=== PATIENT | female | born 1990 | race Caucasian/White ===

== ENCOUNTER 2018-07-28 11:45 | Emergency (ER) | payer OTHER ==
[2018-07-28 12:40] LABS: KETONE, URINE AUTO RFX NEGATIVE (NEGATIVE); LEUKOCYTE ESTERASE UR AUTO RFX NEGATIVE (NEGATIVE); NITRITE, URINE AUTO RFX NEGATIVE (NEGATIVE); RBC, URINE AUTO RFX TNTC /HPF (0-3); SPECIFIC GRAVITY UR AUTO RFX 1.017 (1.002-1.035); SQUAM EPITHELIAL CELL UR AURFX 1 /HPF (0-6); WBC, URINE AUTO RFX 7 /HPF (0-3); YEAST LIKE CELL URINE AUTO RFX SMALL
[2018-07-28 15:03] LABS: CONTROL LINE UCG INT CTR LINE PRESENT; URINE PREG TEST NEGATIVE (NEGATIVE)
[2018-07-28 15:19] LABS: BASO # 0.1 10^3/uL (0.0-0.2); BASO % 0.8 % (0.0-1.0); EOS # 0.1 10^3/uL (0.0-0.50); EOS % 1.3 % (0.0-3.0); IMMATURE GRANULOCYTE % 0.2 % (0-3.0); LYMPH # 2.8 10^3/uL (1.5-6.5); LYMPH % 32.7 % (24.0-44.0); MEAN CORPUSCULAR VOLUME 91.5 fl (80.0-96.0); MONO # 0.6 10^3/uL (0.0-0.8); MONO % 6.7 % (0.0-5.0); NEUTROPHILS % 58.3 % (36.0-66.0); PLATELET COUNT, AUTOMATED 358 10^3/uL (150-450); RED BLOOD COUNT 4.37 10^6/uL (4.00-5.40); RED CELL DISTRIBUTION WIDTH 11.6 % (11.5-14.5); WHITE BLOOD COUNT 8.5 10^3/uL (4.0-10.0)
[2018-07-28] MEDS: KETOROLAC 30 MG/ML VIAL (J1885) IV (15:43)
[2018-07-28] MEDS: ONDANSETRON 4MG/2ML VIAL (J2405) IV (15:43)
[2018-07-28 16:19] LABS: ALBUMIN 4.1 GM/DL (3.2-5.2); ALBUMIN/GLOBULIN RATIO 0.98 (1.00-1.93); ALKALINE PHOSPHATASE 81 U/L (45-117); ALT/SGPT 28 U/L (12-78); AMYLASE 55 U/L (25-115); ANION GAP 8 MEQ/L (8-16); AST/SGOT 22 U/L (7-37); BILIRUBIN,DIRECT < 0.1 MG/DL (0.0-0.2); BILIRUBIN,TOTAL 0.4 MG/DL (0.2-1.0); BLOOD UREA NITROGEN 12 MG/DL (7-18); CALCIUM LEVEL 8.8 MG/DL (8.5-10.1); CARBON DIOXIDE LEVEL 26 MEQ/L (21-32); CHLORIDE LEVEL 106 MEQ/L (98-107); CREATININE FOR GFR 0.79 MG/DL (0.55-1.30); GLOMERULAR FILTRATION RATE > 60.0 (>60); GLUCOSE, FASTING 101 MG/DL (70-100); LIPASE 94 U/L (73-393); POTASSIUM SERUM 3.5 MEQ/L (3.5-5.1); SODIUM LEVEL 140 MEQ/L (136-145); TOTAL PROTEIN 8.3 GM/DL (6.4-8.2)
[2018-07-28] MEDS: BACTRIM 160MG/800MG DS TAB PO (17:16)
[2018-07-28] MEDS: FLUCONAZOLE 100 MG TAB PO (17:17)
== END 2018-07-28 17:23 | disposition home or self-care (01) ==
LOC: M ED 11:45
DX: N83.202 Unspecified ovarian cyst, left side (principal); N30.90 Cystitis, unspecified without hematuria; R11.0 Nausea; Z87.442 Personal history of urinary calculi; Z87.891 Personal history of nicotine dependence
CPT/HCPCS: J2405

== ENCOUNTER → 2018-10-26 | Outpatient (CLI) | payer OTHER ==
[~2018-10-26] MED LIST: BACT800T5 PO; DIFL200T PO
[2018-10-26 15:22] LABS: FREE T4 0.93 NG/DL (0.76-1.46); THYROID STIMULATING HORMONE 1.76 uIU/ML (0.358-3.740)
[2018-10-26 15:25] LABS: PROLACTIN 5.8 NG/ML
[2018-10-26 15:26] LABS: ESTRADIOL 37.7 PG/ML; FOLLICLE STIMULATING HORMONE 5.8 mIU/mL; LUTEINIZING HORMONE 4.2 mIU/mL
[2018-10-31 00:15] LABS: 17 HYDROXY PROGESTERONE 47 ng/dL (.); DEHYDROEPIANDROSTERONE SULFATE 302.2 ug/dL (84.8-378.0); TESTOSTERONE FREE (DIRECT) 2.6 pg/mL (0.0-4.2)
== END ==
LOC: M SMT 10:17
PROVIDERS: ATTEND Obstetrics & Gynecology
DX: E28.2 Polycystic ovarian syndrome (principal)

== ENCOUNTER → 2018-11-13 | Outpatient (CLI) | payer OTHER | LOC: M WUC 13:52 | PROVIDERS: ATTEND Obstetrics & Gynecology | DX: E28.2 Polycystic ovarian syndrome (principal) ==

== ENCOUNTER → 2019-02-05 | Outpatient (CLI) | payer OTHER | LOC: M WUC 14:21 | PROVIDERS: ATTEND Obstetrics & Gynecology | DX: E28.2 Polycystic ovarian syndrome (principal) ==

== ENCOUNTER 2019-07-03 19:13 | Outpatient (CLI) | payer OTHER ==
[~2019-07-03] VITALS: Ht 157.5 cm; Wt 83.8 kg
[2019-07-03 19:36] VITALS: BP 132/75
[2019-07-03] MEDS ORDERED: PRENTAB9 PO (20:23)
== END 2019-07-03 20:15 | disposition home or self-care (01) ==
LOC: M LDO 19:13
PROVIDERS: ATTEND Obstetrics & Gynecology
DX: O36.8120 Decreased fetal movements, second trimester, not applicable or unspecified (principal); O26.892 Other specified pregnancy related conditions, second trimester; R10.9 Unspecified abdominal pain; R06.02 Shortness of breath; Z3A.24 24 weeks gestation of pregnancy
CPT/HCPCS: 59025; G0378; G0463

== ENCOUNTER 2019-09-28 14:25 | Inpatient (IN) | payer OTHER ==
[~2019-09-28] VITALS: Ht 157.5 cm; Wt 88.3 kg
[2019-09-28] VITALS (9 sets, daily range): BP systolic 108–144; BP diastolic 58–95
[~2019-09-28 14:25] MED LIST changes: +PRENTAB9 PO
[2019-09-28] MEDS ORDERED: LACTATED RINGER'S 1000 ML IV STA (15:27)
[2019-09-28] MEDS ORDERED: PENICILLIN G POTASSIUM IV 5 MU in D5W MINI-BAG PLUS 100 ML IV STA (15:27)
[2019-09-28] MEDS ORDERED: LR 1,000 ML IV SCH (15:27)
[2019-09-28] MEDS ORDERED: NALBUPHINE HCL 10 MG/ML AMP (J2300) IM ONE ×2 (15:45→20:15)
[2019-09-28] MEDS ORDERED: NALBUPHINE HCL 10 MG/ML AMP (J2300) IV ONE ×2 (15:45→20:15)
[2019-09-28] MEDS ORDERED: PROMETHAZINE INJ 25 MG/ML VIAL (J2550) IV ONE ×2 (15:45→20:15)
[2019-09-28 15:53] LABS: BASO % 0.3 % (0.0-1.0); EOS # 0.1 10^3/uL (0.0-0.5); EOS % 0.4 % (0.0-3.0); HEMATOCRIT 35.9 % (36.0-47.0); HEMOGLOBIN 12.1 g/dl (12.0-15.5); LYMPH # 1.5 10^3/uL (1.5-5.0); LYMPH % 12.7 % (24.0-44.0); MEAN CORPUSCULAR HGB CONC 33.7 g/dl (32.0-36.5); MEAN CORPUSCULAR VOLUME 92.1 fl (80.0-96.0); MONO # 0.6 10^3/uL (0.0-0.8); MONO % 5.2 % (0.0-5.0); NEUTROPHILS # 9.5 10^3/uL (1.5-8.5); NEUTROPHILS % 80.8 % (36.0-66.0); PLATELET COUNT, AUTOMATED 297 10^3/uL (150-450); WHITE BLOOD COUNT 11.8 10^3/uL (4.0-10.0)
--- NOTE | 2019-09-28 16:01 | HPEPDOC ---
Obstetrical History & Physical General Date of Admission Sep 28, 2019 at 15:33 History of Present Illness patient is a 29 yo G1 @ 36+4wks gestation presents with concern for rupture of m radhika at 0100 this AM. She started having regular contraction after that. report having bloody show. +FM. patient recently diagnosed with GHTN and was collecting 24hr urine protein which she turned in this AM at lab. She reports seeing blood in urine she collected. denies STOVER/N/V/change in vision. 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 she has not been using medication for a long time. Surgical History: Denies/None Social History Marital Status: Family situation: Spouse/partner home * Smoker: non-smoker Alcohol: Denies Drugs: denies Imunizations Tdap status: current Influenza Status: current Allergies Coded Allergies: No Known Allergies (Unverified , 09/28/19) Medications Scheduled No.137/Iron/Folic Acd ( Vitamin Tablet) 1 Each Tablet, 1 TAB PO DAILY Physical Examination Physical Examination GENERAL: Alert and oriented times three. BREAST: . ABDOMEN: Gravid and non-tender to touch. FETUS: Is vertex (VTX) by sterile vaginal examination (SVE), fetus is vertex (VTX) by Sai. HEART RATE: Regular rate and rhythm. LUNGS: Clear to auscultation (CTA). EXTREMITIES: No edema/erythema/tenderness speculum exam: small pooling, neg valsalva ferning positive ce: 2/80/-3, posterior, medium EFW: 3600gm Vital Signs/I&O Vital Signs Date Time Temp Pulse Resp B/P (MAP) Pulse Ox O2 Delivery O2 Flow Rate FiO2 09/28/19 14:45 97.9 107 16 144/95 (111) Laboratory Data 24H LABS Laboratory Tests 2 09/28/19 15:32: 09/28/19 15:39: CBC/BMP Pertinent Laboratoy Data Blood Type: O+ RBC Antibody Screen: Negative HIV: Positive Hepatitis B: Positive Rapid Plasma Reagin: Nonreactive Rubella: Immune Chlamydia/Gonorrhea: Negative Group B Streptococcus: Unknown Glucose Tolerance Test: 128 Anatomy Ultrasound Placenta Location: Anterior Normal Anatomy: Yes Placenta Previa: No Vaginal Examination Dilation: 2cm Effacement: 80% Station: -3 Cervical Consistency: Medium Cervical Position: Posterior Presentation: Cephalic presentation Assessment Heart Rate (FHR): 150 Variability: Moderate Accelerations: Positive Decelerations: None Tocometer Contractions: Yes Frequency: irregular Assessment/Plan Assessment patient is a 29 yo G1 @ 36+4wks with PPROM. complicated by GHTN. Discussed antibiotics prophy with PNC for GBS unknown with baby. Possible augmentation with pitocin as needed. Patient counseled on l&d monitors and risks as follows. Discussed external monitor with toco and sono for fhr. Internal monitors with IUPC and FSE as indicated. Possible use of oxytocin and AROM to augment labor as indicated. Risk of emergent delivery, infection requiring antibiotics and prolonged hospital stay, bleeding requiring blood transfusion and associated risk like anaphylatic reaction and transmission of blood borne pathogens, use of forceps and vacuum to assist vaginal delivery in an emergency or for maternal exhaustion and associated risk of vaginal tear and permanent injuries, episiotomy and pain discussed with patient. Plan Admit and orient. Swimming Pool Maintenance and consent. Diet: regular Group B Streptococcus (GBS) unknown, start PCN prophy Labs and intravenous (IV) per unit protocol. Counseled on Pitocin and induction of labor (IOL). Anticipate normal spontaneous delivery (). C-S as appropriate. AYALA HOWARD DO Sep 28, 2019 15:57
[2019-09-28 16:11] LABS: ALT/SGPT 17 U/L (12-78); BILIRUBIN,TOTAL 0.3 MG/DL (0.2-1.0); GLOMERULAR FILTRATION RATE > 60.0 (>60); LDH LACTATE DEHYDROGENASE 118 U/L (84-246); URIC ACID 7.5 MG/DL (2.6-6.0)
[2019-09-28 16:21] LABS: CREATININE,RANDOM URINE 64.1 MG/DL; TOTAL PROTEIN,RANDOM URINE 25.9 MG/DL (0.0-12.0)
[2019-09-28] MEDS: PENICILLIN G POTASSIUM IV 2.5 MU in IV 1 EA IV SCH ×2 (19:46→23:46)
[2019-09-28] MEDS ORDERED: OXYTOCIN DRIP 30 UNITS in IV 1 EA IV SCH (20:15)
[2019-09-28] MEDS ORDERED: FENTANYL 2MCG/ML ROPIVACAINE 0.2% IN 0.9% NACL 100ML IVBAG As Ordered ONE (23:29)
[2019-09-29] VITALS (49 sets, daily range): BP systolic 106–163; BP diastolic 59–108
[2019-09-29] MEDS ORDERED: EPIDURAL COMMENT XX SCH (02:00)
[2019-09-29] MEDS ORDERED: ePHEDrine SULFATE 25 MG/5 ML(5MG/ML) SYRINGE IV PRN (02:00)
[2019-09-29] MEDS ORDERED: diphenhydrAMINE INJ 50MG/ML VIAL (J1200) IV PRN ×2 (02:00→17:20)
[2019-09-29] MEDS ORDERED: EPIDURAL/PCA KEYS XX PRN (02:00)
[2019-09-29] MEDS ORDERED: NALOXONE INJ 0.4 MG/1 ML VIAL (J2310) IV PRN ×3 (02:00→17:20)
[2019-09-29] MEDS ORDERED: LACTATED RINGER'S 1000 ML IV PRN (02:00)
[2019-09-29] MEDS ORDERED: ONDANSETRON 4MG/2ML VIAL (J2405) IV PRN ×4 (02:00→19:15)
[2019-09-29] MEDS ORDERED: REFRIGERATOR IV KEYS XX PRN (02:00)
[2019-09-29] MEDS: PENICILLIN G POTASSIUM IV 2.5 MU in IV 1 EA IV SCH ×3 (04:04→13:56)
--- NOTE | 2019-09-29 05:18 | IPNPDOC ---
Text Note Date of Service The patient was seen on 09/29/19. NOTE patient comfortable with epidural. pit was decreased from 10mU to 5mU due to recurrent variable/late decels vitals: normal fht:150/min-mod norm/no accel/variable decels toco: ctx q 3-5mins CE: 4/80/-1, IUPC placed for amnioinfusion. a/p patient in latent labor, start amnioinfusion for recurrent variable decels. recheck in 4 -6hrs. VS,Fishbone, I+O VS, Fishbone, I+O Laboratory Tests 09/28/19 15:32 Vital Signs Date Time Temp Pulse Resp B/P (MAP) Pulse Ox O2 Delivery O2 Flow Rate FiO2 09/29/19 04:00 97.3 112 134/80 (98) 09/28/19 14:45 16 I&O- Last 24 Hours up to 6 AM 09/29/19 06:00 Intake Total 1600 ml Output Total 1650 ml Balance -50 ml AYALA HOWARD DO Sep 29, 2019 05:18
[2019-09-29] MEDS: FENTANYL/ROPIVACAINE/NACL BAG 100 ML EPIDURAL SCH ×3 (07:40→20:58)
--- NOTE | 2019-09-29 09:15 | IPNPDOC ---
Text Note Date of Service The patient was seen on 09/29/19. NOTE Intrapartum Note, acceptance of care I accepted care of Consueol at 0730 this morning. In brief, she is a 29yo with SIUP at 36w5d who presented to L&D with PPROM, having likely had ROM at 0100 on 09/28, clear. She is now >24hr with ROM. Receiving PCN for GBS unknown. Pitocin was initiated for augmentation, but was discontinued overnight for FHR decels. Last SCE at [address] Laguna was 4/80/-2, IUPC was placed and amnio-infusion was begun. Pit titrated back up to 4mu. Oskar gracia is comfortable with epidural. I recently discontinued amnio-infusion since there was minimal return and FHR decels had resolved. PNC significant for recent GHTN diagnosis and protein:creatinine by straight cath on admission was 0.4, ruling in for pre-E withOUT severe features. BPs remain normotensive to mild range. Notably, UA had 2+ blood, likely influencing the protein in her urine. She has no other sx of pre-E. Currently FHRT shows bl 150, + accels, mod norm, no decels [place]: ctx q3-4min SCE just now 4/50/-2. Cervix somewhat swollen. head moved slightly with good return of still-clear fluid. -Plan to continue to titrate pitocin to adequte MVUs and recheck in 4-6hr or meli ner as indicated Safe to proceed Dr. Rosalia Moses MD VS,Elvia I+O VSElvia I+O Laboratory Tests 09/28/19 15:32 Vital Signs Date Time Temp Pulse Resp B/P (MAP) Pulse Ox O2 Delivery O2 Flow Rate FiO2 09/29/19 07:00 97.7 110 144/93 (110) 09/28/19 14:45 16 I&O- Last 24 Hours up to 6 AM 09/29/19 06:00 Intake Total 1600 ml Output Total 1650 ml Balance -50 ml Rosalia Moses MD Sep 29, 2019 09:15
--- NOTE | 2019-09-29 12:42 | IPNPDOC ---
Text Note Date of Service The patient was seen on 09/29/19. NOTE Intrapartum Note Consuelo is a 29yo with SIUP at 36w5d admitted to L&D for PPROM, having likely had ROM at 0100 on . She has dx of pre-E withOUT severe features by mild range bp's and proteinuria. She is now >24hr with ROM. Receiving PCN for GBS unknown. Pitocin was initiated for augmentation, but was discontinued overnight for FHR decels. Re-started when FHRT was reassuring and titrated to adequate MVUs by IUPC. Patient remains comfortable with epidural. Vitals: BPs normotensive to mild range. FHRT: bl 150, + accels, mod norm, no decels [place]: ctx q2-3min with adequate MVUs by IUPC which I recently replaced SCE /-2 Plan: -continue to titrate pitocin to adequte MVUs -recheck in 2-4hr or sooner as indicated -safe to proceed Dr. Rosalia Moses MD VS,Elvia, I+O VSElvia I+O Laboratory Tests 09/28/19 15:32 Vital Signs Date Time Temp Pulse Resp B/P (MAP) Pulse Ox O2 Delivery O2 Flow Rate FiO2 09/29/19 07:00 97.7 110 144/93 (110) 09/28/19 14:45 16 I&O- Last 24 Hours up to 6 AM 09/29/19 06:00 Intake Total 1600 ml Output Total 1650 ml Balance -50 ml Rosalia Moses MD Sep 29, 2019 12:42
[2019-09-29] MEDS ORDERED: BICITRA 30ML SOLN UDC As Ordered ONE (16:38)
[2019-09-29] MEDS ORDERED: AZITHROMYCIN INJ 500MG VIAL (J0456) As Ordered ONE (16:39)
[2019-09-29] MEDS ORDERED: ceFAZolin 2 GM/D5W 50 ML IV BAG (J0690 PER 500MG) As Ordered ONE (16:39)
[2019-09-29] MEDS ORDERED: BICITRA 30ML SOLN UDC PO ONE (16:45)
[2019-09-29] MEDS ORDERED: ceFAZolin SOD 2 GM in IV 1 EA IV ONE (16:45)
[2019-09-29] MEDS ORDERED: AZITHROMYCIN INJ 500 MG, VIAL MATE ADAPTER 1 EACH in D5W 250 ML IV ONE (16:45)
[2019-09-29] MEDS ORDERED: OXYTOCIN INJ 10 UNITS/ML VIAL (J2590) As Ordered ONE (16:53)
[2019-09-29] MEDS ORDERED: ONDANSETRON 4MG/2ML VIAL (J2405) As Ordered ONE (16:58)
[2019-09-29] MEDS ORDERED: dexameTHASONE 4 MG/ML 1ML VIAL (J1100) As Ordered ONE (16:58)
[2019-09-29] MEDS ORDERED: MORPHINE PRES-FREE INJ 10 MG/10 ML VIAL (J2274) As Ordered ONE (17:17)
[2019-09-29] MEDS ORDERED: NALBUPHINE HCL 10 MG/ML AMP (J2300) IV PRN ×2 (17:20→19:15)
[2019-09-29] MEDS ORDERED: METOCLOPRAMIDE INJ 10MG/2ML VIAL (J2765) IV PRN (17:20)
[2019-09-29] MEDS ORDERED: LIDOCAINE 2% W/EPIN INJ 20ML **PRES FREE As Ordered ONE (17:43)
[2019-09-29] MEDS ORDERED: KETOROLAC 60 MG/2 ML VIAL (J1885) As Ordered ONE (17:53)
[2019-09-29] MEDS ORDERED: PENICILLIN G POTASSIUM IV 2.5 MU in IV 1 EA IV SCH (18:00)
[2019-09-29] MEDS ORDERED: RHOGAM 300 MCG (1500 IU) INJ (J2790) IM SCH (19:00)
[2019-09-29] MEDS ORDERED: MEASLES,MUMPS,RUBELLA VACCINE INJ (MMR-II) (90707) SC SCH (19:00)
--- NOTE | 2019-09-29 19:03 | IPNPDOC ---
Text Note Date of Service The patient was seen on 09/29/19. NOTE Late entry due to busy L&D I checked Consuelo 4 hours after prior check, having had adequate MVUs and she had made no cervical change- cervix was also noticeably more swollen. Thus, I counseled her regarding my recommendation for PLTCS for arrest of dilation which she was amenable to. Patient was counseled regarding all risks/benefits/alternatives and consent form for PLTCS and blood transfusion were signed by patient and me. Anceph 2g IV given as well as 500mg IV azithromycin PLTCS was uncomplicated. Please see dictated operative report for further details. Dr. Rosalia Moses MD VS,Elvia, I+O VS, Elvia, I+O Vital Signs Date Time Temp Pulse Resp B/P (MAP) Pulse Ox O2 Delivery O2 Flow Rate FiO2 09/29/19 16:31 99.2 09/29/19 16:30 77 20 129/63 (85) I&O- Last 24 Hours up to 6 AM 09/29/19 06:00 Intake Total 1600 ml Output Total 1650 ml Balance -50 ml Rosalia Moses MD Sep 29, 2019 19:03
[2019-09-29] MEDS ORDERED: LR 1,000 ML IV SCH (19:15)
[2019-09-29] MEDS ORDERED: fentaNYL 100 MCG/2 ML INJECTION (J3010) IV PRN (19:15)
[2019-09-29] MEDS: LR 1,000 ML IV SCH (21:02)
[2019-09-29] MEDS: DOCUSATE SODIUM 100 MG CAP PO SCH (21:02)
[2019-09-30] MEDS: KETOROLAC 30 MG/ML VIAL (J1885) IV SCH ×3 (00:55→12:37)
[2019-09-30 02:07] VITALS: BP 109/68
[2019-09-30] MEDS: LR 1,000 ML IV SCH (03:30)
[2019-09-30 06:26] VITALS: BP 104/65
[2019-09-30 07:31] LABS: HEMATOCRIT 24.4 % (36.0-47.0); MEAN CORPUSCULAR HEMOGLOBIN 31.3 pg (27.0-33.0); MEAN CORPUSCULAR HGB CONC 33.6 g/dl (32.0-36.5); MEAN CORPUSCULAR VOLUME 93.1 fl (80.0-96.0); PLATELET COUNT, AUTOMATED 212 10^3/uL (150-450); RED BLOOD COUNT 2.62 10^6/uL (4.00-5.40); WHITE BLOOD COUNT 17.8 10^3/uL (4.0-10.0)
[2019-09-30 07:38] LABS: HEMOGLOBIN 8.2 g/dl (12.0-15.5)
[2019-09-30] MEDS: PRENATAL VITAMINS CHEWABLE TABLET PO SCH (08:40)
[2019-09-30] MEDS: DOCUSATE SODIUM 100 MG CAP PO SCH ×2 (08:40→21:00)
[2019-09-30] MEDS: PERCOCET 5MG/325MG TAB PO PRN ×2 (08:41→17:39)
--- NOTE | 2019-09-30 09:18 | IPNPDOC ---
Progress Note Date of Service: Sep 30, 2019 Day#: 1 Progress Note POD 1 SUBJECT: Consuelo is a 29yo s/p uncomplicated PLTCS on 09/29 for arrest of dilation at 36w5d after presenting with PPROM and having augmentation of labor, doing well post-op/ day # 1. She had >24hr ROM and received PCN during her labor course for GBS unknown. She has ambulated without issue, mercado in place draining clear yellow urine, has tolerated clear liquids so far and going to try a regular breakfast. Breast feeding without issue. Reports lochia is like a period. She denies f/c/n/v/SOB/CP. OBJECTIVE: VITAL SIGNS: Within normal limits, afebrile. Alert and oriented times three. Abdomen: Fundus firm at U-2. Soft, appropriately tender to palpation. Pfannensteil incision covered by dry sterile dressing with no strike-through. Pre-op H/H: 12.1/35.9 Post-op H/H: 8.2/24.4 ASSESSMENT: Consuelo is a 29yo s/p uncomplicated PLTCS on 09/29 for arrest of dilation at 36w5d after presenting with PPROM and having augmentation of labor, doing well post-op/ day # 1. Vitals within normal limits, afebrile, hemodynamically stable with no evidence of infection. PLAN: 1. Routine post-op/post- care 2. Percocet and Motrin for pain. 3. Encourage breast feeding and ambulation and use of IS. SCDs until fully ambulatory. 4. Regular diet 5. Mercado to be removed 24hr post-op with 4 hour due to void Dr. Rosalia Moses MD VS, I&O, 24H, Elvia Vital Signs/I&O Vital Signs Date Time Temp Pulse Resp B/P (MAP) Pulse Ox O2 Delivery O2 Flow Rate FiO2 09/30/19 08:41 18 09/30/19 06:26 96.9 75 104/65 (78) 96 Room Air I&O- Last 24 Hours up to 6 AM 09/30/19 06:00 Intake Total 7650.9 ml Output Total 2350 ml Balance 5300.9 ml Laboratory Data 24H LABS Laboratory Tests 2 09/30/19 07:16: Nucleated Red Blood Cells % (auto) 0.0 CBC/BMP Laboratory Tests 09/30/19 07:16 Rosalia Moses MD Sep 30, 2019 09:18
[2019-09-30 10:00] VITALS: BP 118/67
[2019-09-30 14:00] VITALS: BP 118/73
[2019-09-30 18:00] VITALS: BP 109/64
[2019-09-30] MEDS: IBUPROFEN 800 MG TAB PO SCH (21:00)
[2019-09-30 22:00] VITALS: BP 122/73
[2019-10-01 02:00] VITALS: BP 111/59
[2019-10-01] MEDS: IBUPROFEN 800 MG TAB PO SCH ×3 (05:20→22:42)
[2019-10-01 06:00] VITALS: BP 118/71
--- NOTE | 2019-10-01 08:51 | IPNPDOC ---
Progress Note Date of Service: Oct 01, 2019 Progress Note Consuelo is a 29 yo G1 now P1 who is POD#2 s/p uncomplicated PLTCS late at night on 29Sep2019 for arrest of dilation after being admitted for PROM. No acute events over last 24 hours. Ms. Salgado feels well this morning. She is tolerating a regular diet and denies any nausea or vomiting. She is ambulating, voiding, and has minimal lochia. Her pain is well controlled with her current pain regimen. Vitals - VSS, normotenisive, afebrile, non tachycardic General - AAOX3, sitting up in bed, pleasant and conversant, NAD Abdomen - Soft, non distended. Incision clean/dry/intact. Steri strips in place. No tenderness to palpation. Fundus firm at U-2. Extremities - No edema UO - appropriate Labs: H/H stable both pre and post op. Ms. Salgado is doing well and is making an appropriate / postoperative recovery. Plan to continue routine post op / care. Anticipate discharge home tomorrow. All patient questions answered. Sharan Rogers DO VS, I&O, 24H, Fishbone Vital Signs/I&O Vital Signs Date Time Temp Pulse Resp B/P (MAP) Pulse Ox O2 Delivery O2 Flow Rate FiO2 10/01/19 06:00 96.9 69 18 118/71 (87) 96 Room Air I&O- Last 24 Hours up to 6 AM 10/01/19 06:00 Intake Total 480 ml Output Total 700 ml Balance -220 ml SHARAN ROGERS DO Oct 01, 2019 08:51
[2019-10-01] MEDS: PERCOCET 5MG/325MG TAB PO PRN ×2 (10:22→20:21)
[2019-10-01] MEDS: PRENATAL VITAMINS CHEWABLE TABLET PO SCH (10:22)
[2019-10-01] MEDS: DOCUSATE SODIUM 100 MG CAP PO SCH ×2 (10:22→20:20)
[2019-10-01 18:00] VITALS: BP 121/75
[2019-10-02] MEDS: IBUPROFEN 800 MG TAB PO SCH (05:59)
[2019-10-02 06:00] VITALS: BP 126/88
[2019-10-02] MEDS: PRENATAL VITAMINS CHEWABLE TABLET PO SCH (08:11)
[2019-10-02] MEDS ORDERED: IBUP80TA PO (08:18)
[2019-10-02] MEDS ORDERED: PERCOCET PO ×2 (08:18)
--- NOTE | 2019-10-02 08:22 | DS.PDOC ---
Discharge Summary General Date of Admission Sep 28, 2019 at 15:33 Date of Discharge 10/02/19 Discharge Summary HOSPITAL COURSE: Ms. Salgado is a 29 yo G1 now P1 who underwent an uncomplicated PLTCS on 29Sep2019 late at night for arrest of dilation after being admitted for PROM. Her course was unremarkable. On her day of discharge she met all appropriate discharge criteria. She was ambulating, voiding, tolerating a regular diet, had minimal lochia, and her pain was well controlled with PO pain medications. DISCHARGE MEDICATIONS: Please see below. ALLERGIES: Please see below. PHYSICAL EXAMINATION ON DISCHARGE: VITAL SIGNS: Please see below. GENERAL: AAOX3, sitting up in bed, NAD CARDIOVASCULAR EXAMINATION: RRR ABDOMINAL EXAMINATION: Fundus firm at U-2. Incision well appearing and clean/dry/intact. Steri strips in place. Minimal tenderness to palpation. EXTREMITIES: No edema PSYCHIATRIC EXAMINATION: Affect appropriate LABORATORY DATA: Please see below. ACTIVITY: Pelvic rest for 6 weeks. No heavy lifting or extremely strenuous activity for 6 weeks. DIET: Regular DISCHARGE PLAN: Discharge home DISPOSITION: Discharge on 02Oct2019 DISCHARGE INSTRUCTIONS: 1. Pelvic rest 2. No heavy lifting or extremely strenuous activity for 6 weeks. ITEMS TO FOLLOWUP ON ON OUTPATIENT: 1. Incision check in 2 weeks DISCHARGE CONDITION: Stable TIME SPENT ON DISCHARGE: Greater than 20 minutes. Sharan Rogers DO Vital Signs/I&Os Vital Signs Date Time Temp Pulse Resp B/P (MAP) Pulse Ox O2 Delivery O2 Flow Rate FiO2 10/02/19 06:00 98.1 79 16 126/88 (101) 99 Room Air I&O- Last 24 Hours up to 6 AM 10/02/19 06:00 Intake Total 480 ml Balance 480 ml Discharge Medications Scheduled Ibuprofen (Ibuprofen) 800 Mg Tablet, 800 MG PO Q8H No.137/Iron/Folic Acd ( Vitamin Tablet) 1 Each Tablet, 1 TAB PO DAILY, (Reported) Scheduled PRN Oxycodone/Acetaminophen (Oxycodone-Acetaminophen 5-325) 1 Each Tablet, 1 TAB PO Q4H PRN for MILD/MODERATE PAIN (PS 1-7) Oxycodone/Acetaminophen (Oxycodone-Acetaminophen 5-325) 1 Each Tablet, 2 TAB PO Q6H PRN for SEVERE PAIN (PS 8-10) Allergies Coded Allergies: No Known Allergies (Unverified , 09/28/19) SHARAN ROGERS DO Oct 02, 2019 08:22
[2019-10-02] MEDS: DOCUSATE SODIUM 100 MG CAP PO SCH (10:44)
--- NOTE | 2019-10-03 08:13 | RO ---
DATE OF PROCEDURE: 09/29/2019 PREPROCEDURE DIAGNOSES: 1. premature rupture of membranes at 36 weeks 5 days. 2. Pre-eclampsia without severe features. 3. Arrest of dilation. POSTPROCEDURE DIAGNOSES: 1. premature rupture of membranes at 36 weeks 5 days. 2. Pre-eclampsia without severe features. 3. Arrest of dilation. PROCEDURE: Primary low transverse section. SURGEON: Dr. Rosalia Moses. JOB PLACEMENT SPECIALIST: Dr. Denys Martinez. MATERIAL FORWARDED TO THE LAB FOR EXAMINATION: None. INDICATIONS FOR OPERATION: Consuelo is a 29-year-old G1 now P 0-1-0-1 who presented to labor and delivery with premature rupture of membranes at 36 weeks and 5 days, received augmentation of her labor with Pitocin, but experienced an arrest of dilation. After having more than 4 hours of adequate MV units with no further progression in labor. Notably she was diagnosed with preeclampsia without severe features on admission based on blood pressures and proteinuria. DESCRIPTION OF FINDINGS: Female infant in cephalic presentation, occiput posterior. 6 and 8. Weight 3310 grams or 7 pounds 5 ounces. Normal appearing uterus, fallopian tubes and ovaries. INFECTION CLASSIFICATION: II. ESTIMATED BLOOD LOSS: 600 mL. IV FLUIDS: 1000 mL of lactated ringers. URINE OUTPUT: 150 mL. DESCRIPTION OF OPERATION: After obtaining informed consent, the patient was taken to the operating room. She received 2 grams of IV Ancef prophylactically as well as 500 mg of IV azithromycin. She already had Guerra catheter and bilateral sequential compression devices in place as she previously had an epidural placed. She was prepped and draped in normal routine sterile fashion in the dorsal supine position with left lateral tilt. Time-out was performed to confirm patient name, date of , procedure and indication. The team was in agreement. Epidural anesthesia was found to be adequate using an Allis clamp. Pfannenstiel skin incision was made with the scalpel and carried through to the underlying layer of fascia. Fascia was incised in the midline and incision was extended laterally with Meadows scissors. Superior and inferior aspects of the fascial incision were grasped with Alexsander clamps, elevated and the underlying rectus muscles were dissected off bluntly and sharply. Peritoneum was entered digitally and the rectus muscles were in the midline. Peritoneal incision was extended superiorly and inferiorly with good visualization of the bladder. Bladder blade was inserted and the vesicouterine peritoneum was identified, grasped with pickups and entered sharply with Metzenbaum scissors. The incision was extended laterally and the bladder flap was created digitally. Bladder blade was reinserted and the lower uterine segment was scored in a transverse fashion with a scalpel. Uterus was entered bluntly and the incision was extended with traction. Bladder blade was removed and infant's head was elevated to the level of the incision. Fundal pressure was applied. head was delivered atraumatically in OP position. Anterior shoulder, posterior shoulder and corpus were delivered without difficulty. Nose and mouth were suctioned with bulb suction and cord was clamped times two and cut. was handed off to the awaiting pediatric team. Notably, she had been diagnosed with meconium during labor and this was also noted at time of delivery. The placenta was removed with traction on the umbilical cord and uterine massage. The uterus was exteriorized and cleared of all clot and debris. Uterine incision was repaired with #0 Vicryl suture in a running locking fashion. Several other #0 Vicryl sutures were placed with using [id number] taking complete hemostasis along the hysterotomy and then a second layer of #0 Monocryl was used to close the hysterotomy incision in imbricating fashion. The uterine incision was inspected and hemostasis was noted. Posterior cul-de-sac was irrigated and uterus returned to the abdomen. Gutters were cleared of all clot and hemostasis was noted. Peritoneum was closed using #3-0 Vicryl suture in running fashion. Fascia was reapproximated using #0 Vicryl suture in a running fashion. Subcutaneous tissue was copiously irrigated. Malia's fascia was reapproximated using #3-0 Vicryl suture in a running fashion. The skin edges were reapproximated using three inverted interrupted stitches using #3-0 Vicryl suture followed by a running subcuticular stitch using #4-0 Monocryl suture. Incision was cleaned using wet lap dried with a dry lap. Steri-Strips were applied in usual fashion perpendicular to the Pfannenstiel incision and the wound was dressed with sterile dressing. Vagina was cleared of all blood clot without active bleeding noted. Fundus was firm at the umbilicus. All counts were correct times two. Also notably, the patient had rupture of membranes greater than 24 hours. She received penicillin during her labor course for GBS of unknown status in the setting of being . Procedure was without complications. The patient tolerated the procedure well. She was taken to recovery room on labor delivery in stable condition.
== END 2019-10-02 12:05 | disposition home or self-care (01) | DRG 773 ==
LOC: M LDO 14:25 → M LDI 15:33 → M OBS 09-29 20:17
PROVIDERS: ADMIT Obstetrics & Gynecology; ATTEND Obstetrics & Gynecology
PROC: 3E0E77Z Introduction of Electrolytic and Water Balance Substance into Products of Conception, Via Natural or Artificial Opening (ICD-10-PCS; 2019-09-29)
PROC: 10D00Z1 Extraction of Products of Conception, Low, Open Approach (ICD-10-PCS; principal; 2019-09-29 17:30)
DX: O42.013 Preterm premature rupture of membranes, onset of labor within 24 hours of rupture, third trimester (principal); Z3A.36 36 weeks gestation of pregnancy; O14.04 Mild to moderate pre-eclampsia, complicating childbirth; O62.0 Primary inadequate contractions; Z37.0 Single live birth

== ENCOUNTER → 2019-11-15 | Outpatient (CLI) | payer OTHER ==
[~2019-11-15] MED LIST changes: +IBUP80TA PO; +PERCOCET PO
[2019-11-15 13:56] LABS: HEMATOCRIT 40.6 % (36.0-47.0); HEMOGLOBIN 13.4 g/dl (12.0-15.5); MEAN CORPUSCULAR HEMOGLOBIN 30.2 pg (27.0-33.0); MEAN CORPUSCULAR VOLUME 91.4 fl (80.0-96.0); PLATELET COUNT, AUTOMATED 365 10^3/uL (150-450); RED BLOOD COUNT 4.44 10^6/uL (4.00-5.40); WHITE BLOOD COUNT 7.8 10^3/uL (4.0-10.0)
[2019-11-15 14:12] LABS: ALT/SGPT 76 U/L (12-78); BILIRUBIN,TOTAL 0.5 MG/DL (0.2-1.0); CREATININE FOR GFR 1.15 MG/DL (0.55-1.30); GLOMERULAR FILTRATION RATE > 60.0 (>60); LDH LACTATE DEHYDROGENASE 135 U/L (84-246); URIC ACID 9.1 MG/DL (2.6-6.0)
[2019-11-15 14:16] LABS: CREATININE,RANDOM URINE 59.4 MG/DL; TOTAL PROTEIN,RANDOM URINE 12.2 MG/DL (0.0-12.0)
== END ==
LOC: M PLALAB 11:08
PROVIDERS: ATTEND Advanced Practice Midwife
DX: O16.9 Unspecified maternal hypertension, unspecified trimester (principal)
CPT/HCPCS: 36415; 82247; 82565; 82570; 83615; 84156; 84450; 84460; 84550; 85027; G0463

== ENCOUNTER → 2020-09-24 | Outpatient (CLI) | payer OTHER ==
--- NOTE | 2020-09-24 09:56 | REP ---
INDICATION: ABNORMAL RESULTS OF LIVER FUNCTION STUDIES COMPARISON: None. TECHNIQUE: Real time de la paz scale ultrasound examination using curved array transducer. FINDINGS: Liver is diffusely echogenic suggesting fatty infiltration without focal hepatic lesion identified. The pancreas is incompletely evaluated due to interposed bowel gas but visualized portions appear normal. The gallbladder is normal and without gallstones, wall thickening, or pericholecystic fluid. No biliary ductal dilatation is appreciated and the common bile duct measures 2.1 mm diameter. Right kidney is normal in reniform shape and size measuring 11.0 x 4.2 x 4.3 cm with prominent echogenic pyramids suggesting medullary nephrocalcinosis and correlation is recommended. No hydronephrosis. No ascites in the visualized right upper quadrant. IMPRESSION: 1. Hepatosteatosis. 2. Findings suggesting medullary nephrocalcinosis. <Electronically signed by Augie Schuler > 09/24/20 [id number]
== END ==
LOC: M RAD 08:57
PROVIDERS: ATTEND Nurse Practitioner Family
DX: R94.5 Abnormal results of liver function studies (principal); K76.0 Fatty (change of) liver, not elsewhere classified

== ENCOUNTER → 2021-02-06 | Outpatient (REF) | payer OTHER ==
[2021-02-06 14:10] LABS: APPEARANCE, URINE HAZY (CLEAR); BACTERIA, URINE AUTO NEGATIVE (NEGATIVE); BILIRUBIN, URINE AUTO NEGATIVE (NEGATIVE); BLOOD, URINE BLOOD 1+ (NEGATIVE); COLOR, URINE YELLOW (YELLOW); GLUCOSE, URINE (UA) AUTO NEGATIVE (NEGATIVE); KETONE, URINE AUTO NEGATIVE (NEGATIVE); LEUKOCYTE ESTERASE, URINE AUTO 2+ (NEGATIVE); MUCUS, URINE SMALL (NEGATIVE); NITRITE, URINE AUTO NEGATIVE (NEGATIVE); PROTEIN, URINE AUTO 1+ mg/dL (NEGATIVE); RBC, URINE AUTO 8 /HPF (0-3); SPECIFIC GRAVITY URINE AUTO 1.016 (1.002-1.035); SQUAMOUS EPITHELIAL CELL UR AU 2 /HPF (0-6); UROBILINOGEN, URINE AUTO 0.2 mg/dL (0.0-2.0); WBC, URINE AUTO 26 /HPF (0-3)
== END ==
LOC: M SMT 13:41
PROVIDERS: ATTEND Nurse Practitioner Women's Health
DX: R31.29 Other microscopic hematuria (principal)
CPT/HCPCS: 81001; 87086; 88108; G0463

== ENCOUNTER → 2021-02-20 | Outpatient (CLI) | payer OTHER ==
[~2021-02-20] MED LIST changes: +ISOVUE-370 76% 100ML VIAL As Ordered ONE
--- NOTE | 2021-02-21 08:39 | REP ---
INDICATION: MICROSCOPIC HEMATURIA, HX KIDNEY STONE. COMPARISON: 05/17/2008 TECHNIQUE: Axial precontrast, contrast-enhanced and delayed images from the lung bases to the pubic symphysis using 100 cc Isovue 370 intravenous contrast material. Coronal and sagittal reformations obtained. 3D CT volume rendered urogram images created. This CT examination was performed using the following dose reduction techniques: Automated exposure control, adjustment of mA and/or kv according to the patient's size, and the use of iterative reconstruction technique. FINDINGS: The kidneys demonstrate bilateral intrarenal calculi measuring up to 7 mm in the right kidney and 10 mm in the left kidney along with bilateral cortical scarring and simple appearing bilateral renal cysts measuring up to 8 mm in the right kidney and 12 mm in the left kidney. No hydronephrosis, perinephric stranding, or obstructing ureteral calculi are identified. Liver is enlarged and demonstrates diffuse hepatosteatosis. Spleen, pancreas, gallbladder, and right adrenal gland are normal. 1.2 cm left adrenal adenoma identified. The enteric system including stomach, small, and large bowel appears normal. No evidence for obstruction or acute inflammatory process. Normal terminal ileum and appendix are identified in the right lower quadrant. Pelvis demonstrates normal bladder and age-appropriate uterus/adnexa. There is a somewhat multiloculated/septated fluid collection in the subcutaneous tissues overlying the anterior midline pelvis measuring 7.1 x 1.5 x 4.7 cm which may represent chronic postsurgical changes/seroma and correlation is recommended. No ascites. No free air. No intraperitoneal or retroperitoneal adenopathy. Abdominal aorta and vasculature appear normal. Musculoskeletal structures are intact and without acute osseous abnormality. IMPRESSION: 1. Bilateral nephrolithiasis along with simple renal cysts and chronic appearing cortical scarring. 2. Hepatomegaly and hepatosteatosis. 3. Partially loculated fluid collection in the subcutaneous tissues midline anterior pelvis which may represent postsurgical seroma and correlation is recommended. Differential diagnosis cannot definitively exclude abscess. <Electronically signed by Augie Schuler > 02/21/21 [id number]
== END ==
LOC: M RAD 15:55
PROVIDERS: ATTEND Nurse Practitioner Women's Health
DX: R31.29 Other microscopic hematuria (principal); Z87.442 Personal history of urinary calculi; R16.0 Hepatomegaly, not elsewhere classified; N20.0 Calculus of kidney
CPT/HCPCS: 74178; Q9967

== ENCOUNTER → 2021-03-24 | Outpatient (CLI) | payer OTHER ==
[~2021-03-24] MED LIST changes: -ISOVUE-370 76% 100ML VIAL As Ordered ONE
[2021-03-24 13:13] LABS: APPEARANCE, URINE CLEAR (CLEAR); BACTERIA, URINE AUTO NEGATIVE (NEGATIVE); BILIRUBIN, URINE AUTO NEGATIVE (NEGATIVE); BLOOD, URINE BLOOD NEGATIVE (NEGATIVE); COLOR, URINE YELLOW (YELLOW); GLUCOSE, URINE (UA) AUTO NEGATIVE (NEGATIVE); KETONE, URINE AUTO NEGATIVE (NEGATIVE); LEUKOCYTE ESTERASE, URINE AUTO TRACE (NEGATIVE); MUCUS, URINE SMALL (NEGATIVE); NITRITE, URINE AUTO NEGATIVE (NEGATIVE); PROTEIN, URINE AUTO NEGATIVE (NEGATIVE); RBC, URINE AUTO 5 /HPF (0-3); SPECIFIC GRAVITY URINE AUTO 1.015 (1.002-1.035); SQUAMOUS EPITHELIAL CELL UR AU 1 /HPF (0-6); UROBILINOGEN, URINE AUTO 0.2 mg/dL (0.0-2.0); WBC, URINE AUTO 17 /HPF (0-3)
[2021-03-24 13:17] LABS: HEMATOCRIT 47.3 % (36.0-47.0); HEMOGLOBIN 15.8 g/dl (12.0-15.5); MEAN CORPUSCULAR HEMOGLOBIN 30.5 pg (27.0-33.0); MEAN CORPUSCULAR HGB CONC 33.4 g/dl (32.0-36.5); MEAN CORPUSCULAR VOLUME 91.3 fl (80.0-96.0); PLATELET COUNT, AUTOMATED 340 10^3/uL (150-450); RED BLOOD COUNT 5.18 10^6/uL (4.00-5.40)
[2021-03-24 13:32] LABS: INR 0.9; PROTHROMBIN TIME 12.3 SECONDS (12.5-14.3)
[2021-03-24 13:33] LABS: PARTIAL THROMBOPLASTIN TIME 34.4 SECONDS (24.2-38.5)
[2021-03-24 13:54] LABS: HCG, SERUM QUALITATIVE NEGATIVE (NEGATIVE)
[2021-03-24 13:57] LABS: BLOOD UREA NITROGEN 13 MG/DL (7-18); CALCIUM LEVEL 9.5 MG/DL (8.5-10.1); CARBON DIOXIDE LEVEL 27 MEQ/L (21-32); CHLORIDE LEVEL 104 MEQ/L (98-107); CREATININE FOR GFR 0.79 MG/DL (0.55-1.30); GLOMERULAR FILTRATION RATE > 60.0 (>60); GLUCOSE, FASTING 89 MG/DL (70-100); POTASSIUM SERUM 4.1 MEQ/L (3.5-5.1); SODIUM LEVEL 139 MEQ/L (136-145)
--- NOTE | 2021-03-24 15:13 | REPPI ---
INDICATION: PRE OP, KIDNEY STONES COMPARISON: None. TECHNIQUE: PA and lateral. FINDINGS: The mediastinum and cardiac silhouette are normal. The lung lyle are clear and without acute consolidation, effusion, or pneumothorax. The skeletal structures are intact and normal. IMPRESSION: No acute cardiopulmonary process. <Electronically signed by Augie Schuler > 03/24/21 [id number]
== END ==
LOC: M PLAIMG 09:36
PROVIDERS: ATTEND Nurse Practitioner Women's Health
DX: Z01.818 Encounter for other preprocedural examination (principal); N20.0 Calculus of kidney

== ENCOUNTER → 2021-03-24 | Outpatient (CLI) | payer OTHER ==
--- NOTE | 2021-03-24 19:34 | ECGEPIP ---
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
== END ==
LOC: M EKG 11:02
PROVIDERS: ATTEND Nurse Practitioner Women's Health
DX: Z01.818 Encounter for other preprocedural examination (principal); N20.0 Calculus of kidney

== ENCOUNTER → 2021-03-28 | Outpatient (CLI) | payer OTHER | LOC: M LABSMTC 11:26 | PROVIDERS: ATTEND Anesthesiology | DX: Z01.818 Encounter for other preprocedural examination (principal); Z20.822 Contact with and (suspected) exposure to COVID-19 ==

== ENCOUNTER 2021-04-02 09:02 | Day surgery (SDC) | payer OTHER ==
[~2021-04-02] VITALS: Ht 157.5 cm; Wt 79.4 kg
[~2021-04-02 09:02] MED LIST changes: +LIDOCAINE 1% MDV 20ML VIAL SQ PRN; +LR 1,000 ML IV ONE; +ceFAZolin SOD 2 GM in IV 1 EA IV ONE
[2021-04-02] MEDS ORDERED: dexameTHASONE 4 MG/ML 1ML VIAL (J1100 PER 1MG) As Ordered ONE (10:36)
[2021-04-02] MEDS ORDERED: LIDOCAINE 2% 100MG/5ML SDV (FOR ANES.) As Ordered ONE (10:36)
[2021-04-02] MEDS ORDERED: fentaNYL 100 MCG/2 ML INJECTION (J3010) As Ordered ONE (10:36)
[2021-04-02] MEDS ORDERED: KETOROLAC 60MG 2ML VIAL As Ordered ONE (10:36)
[2021-04-02] MEDS ORDERED: MIDAZOLAM INJ 2MG/2ML VIAL (J2250 PER 1MG) As Ordered ONE (10:36)
[2021-04-02] MEDS ORDERED: propofoL 200 MG/20 ML VIAL As Ordered ONE (10:36)
[2021-04-02] MEDS ORDERED: ONDANSETRON 4MG/2ML VIAL As Ordered ONE (10:36)
[2021-04-02] MEDS ORDERED: ACETAMINOPHEN 1000MG 100ML IV BTL (OFIRMEV) (J0131 PER 10MG) As Ordered ONE (10:36)
[2021-04-02] MEDS ORDERED: CONRAY-60 60% 50ML VIAL (Q9961) As Ordered ONE (12:48)
--- NOTE | 2021-04-02 14:50 | REP ---
INDICATION: CYSTO, BILATERAL URETEROSCOPY W/LASER. COMPARISON: Comparison CT study February 20, 2021.. TECHNIQUE: Three views. 9 seconds of fluoroscopy time is reported. FINDINGS: A sequence of 3 last image hold fluoroscopically obtained spot radiographs of the abdomen document bilateral ureteral cannulation, contrast injection, and stent placement. IMPRESSION: Procedural imaging. <Electronically signed by Ricardo Geiger > 04/02/21 [id number]
[2021-04-02] MEDS ORDERED: METOCLOPRAMIDE INJ 10MG/2ML VIAL (J2765 PER 1) IV PRN (15:10)
[2021-04-02] MEDS ORDERED: PERCOCET 5MG/325MG TAB PO PRN ×2 (15:10→15:15)
[2021-04-02] MEDS ORDERED: fentaNYL 100 MCG/2 ML INJECTION (J3010) IV PRN (15:10)
[2021-04-02] MEDS ORDERED: LR 1,000 ML IV SCH (15:10)
[2021-04-02] MEDS ORDERED: ONDANSETRON 4MG/2ML VIAL IV PRN (15:10)
[2021-04-02] MEDS ORDERED: OXYB5TAB10 PO (15:13)
[2021-04-02] MEDS ORDERED: PERCOCET PO (15:13)
[2021-04-02] MEDS ORDERED: oxyBUTYnin 5 MG TAB PO PRN (15:20)
--- NOTE | 2021-04-02 15:24 | RO ---
OPERATIVE NOTE DATE OF OPERATION: 04/02/2021 PREOPERATIVE DIAGNOSIS: Bilateral kidney stones. POSTOPERATIVE DIAGNOSIS: Bilateral kidney stones, bilateral nephrocalcinosis. PROCEDURES: Cystoscopy, Bilateral Ureteroscopy with Laser Lithotripsy and Basket Extraction of Stones, Bilateral Retrograde Pyelograms with Intraoperative Interpretation of Images, Bilateral Ureteral Stent Placement. SURGEON: Dr. Quinton Carrasco REGISTRATION REPRESENTATIVE: None. ANESTHESIA: General. OPERATIVE INDICATIONS: This is a 31-year-old female who was found to have multiple non-obstructing bilateral kidney stones measuring up to about 7-8 mm on both sides. She was brought to the operating room today for treatment. DESCRIPTION OF PROCEDURE: The patient was brought to the operating room, and general anesthesia was induced. Prophylactic antibiotics were infused. She was placed in the dorsal lithotomy position and prepped and draped in the usual sterile fashion. A rigid cystoscope was inserted in the urethral meatus and advanced to the bladder. A guidewire was advanced up the right collecting system. I then advanced the ureteral access sheath up the right collecting system. I went up the access sheath with flexible ureteroscope and examined the right kidney. There were several stones measuring up to about 6-7 mm in the right kidney and also the renal papillae demonstrated nephrocalcinosis. I then utilized 272 micron laser fiber to fragment the stones into smaller pieces and then removed all the fragments using a basket. Once all the fragments were removed a retrograde pyelogram was performed and notable for moderate right hydronephrosis but no extravasation. I then withdrew the ureteroscope along with the access sheath and no additional stones were seen inside the ureter. I utilized the guidewire to advance a 6-[place] x 22-32 cm JJ ureteral stent up the right collecting system. I then removed the wire and there were adequate curls of the stent in the right renal pelvis and the bladder. I then advanced the guidewire up the left collecting system. I advanced ureteral access sheath over the wire. I went up the access sheath with a flexible ureteroscope examined the left kidney thoroughly. Similar to the right side there were several stones in the left as well measuring up to about 7 mm in size. There was also nephrocalcinosis. The stones were fragmented using a laser and all the fragments were removed using a basket. Once satisfied that all the fragments had been removed from the left kidney a retrograde pyelogram was performed and was notable for mild left hydronephrosis with no extravasation. I then withdrew the ureteroscope along with the access sheath, and no additional stones were seen inside the ureter. I then utilized the guidewire to advance a 6-[place] x 22-32 cm JJ ureteral stent up the left collecting system. The wire was removed, and there were adequate curls of the stent in the left renal pelvis and in the bladder. The bladder was emptied of all fluids and this marked the conclusion of the procedure. The patient was taken out of the dorsal lithotomy position, awakened from anesthesia and transported to the recovery room in stable condition. ESTIMATED BLOOD LOSS: 15 mL. COMPLICATIONS: None. SPECIMENS: Kidney stone fragments. PLAN: The patient will followup in the urology clinic in 2-3 weeks for stent removal. JEAN
[2021-04-02 17:45] VITALS: BP 130/81
[2021-04-11 15:08] LABS: CA Oxalate Dihy 30 % (.); Ca Ox Monohydrate 50 % (.); Size 5x5 mm (.)
== END 2021-04-02 17:45 | disposition home or self-care (01) ==
LOC: M SDC 09:02
PROVIDERS: ATTEND Urology
DX: N20.0 Calculus of kidney (principal); F41.9 Anxiety disorder, unspecified; F32.9 Major depressive disorder, single episode, unspecified; R06.83 Snoring; Z86.79 Personal history of other diseases of the circulatory system; Z87.442 Personal history of urinary calculi
CPT/HCPCS: 52356; 74420; 82365; 88300; C1769; C1894; C2617; J0131; J0690; J1100; J1885; J2250; J2405; J3010; Q9961

== ENCOUNTER → 2021-06-23 | Outpatient (CLI) | payer OTHER ==
[~2021-06-23] MED LIST changes: -LIDOCAINE 1% MDV 20ML VIAL SQ PRN; -LR 1,000 ML IV ONE; +OXYB5TAB10 PO; -ceFAZolin SOD 2 GM in IV 1 EA IV ONE
== END ==
LOC: M PLALAB 11:31
PROVIDERS: ATTEND Obstetrics & Gynecology
DX: N92.6 Irregular menstruation, unspecified (principal)

== ENCOUNTER → 2021-07-16 | Outpatient (CLI) | payer OTHER ==
--- NOTE | 2021-07-16 14:29 | REP ---
INDICATION: PRESENCE OF UROGENITAL IMPLANTS. COMPARISON: None. FINDINGS: KUB shows the intestinal gas pattern to be nonspecific. The organ silhouettes insofar as delineated are unremarkable. There is no evidence of free intraperitoneal air. Multiple calcifications are seen superimposed over the left nephric silhouette region. IMPRESSION: Nonspecific. Left nephroliths are suspected. <Electronically signed by Venkata Rai > 07/16/21 [id number]
== END ==
LOC: M PLAIMG 13:54
DX: Z96.0 Presence of urogenital implants (principal)

== ENCOUNTER → 2021-07-28 | Outpatient (REF) | payer OTHER ==
[2021-07-28 18:08] LABS: APPEARANCE, URINE HAZY (CLEAR); BILIRUBIN, URINE AUTO NEGATIVE (NEGATIVE); BLOOD, URINE BLOOD NEGATIVE (NEGATIVE); COLOR, URINE YELLOW (YELLOW); GLUCOSE, URINE (UA) AUTO NEGATIVE (NEGATIVE); KETONE, URINE AUTO NEGATIVE (NEGATIVE); LEUKOCYTE ESTERASE, URINE AUTO NEGATIVE (NEGATIVE); NITRITE, URINE AUTO NEGATIVE (NEGATIVE); PROTEIN, URINE AUTO NEGATIVE (NEGATIVE); SPECIFIC GRAVITY URINE AUTO 1.019 (1.002-1.035); UROBILINOGEN, URINE AUTO 0.2 mg/dL (0.0-2.0)
[2021-07-28 18:11] LABS: BACTERIA, URINE AUTO NEGATIVE (NEGATIVE); CALCIUM OXALATE CRYSTALS SMALL; RBC, URINE AUTO 0 /HPF (0-3); SQUAMOUS EPITHELIAL CELL UR AU 4 /HPF (0-6); WBC, URINE AUTO 0 /HPF (0-3)
== END ==
LOC: M SMT 17:23
PROVIDERS: ATTEND Nurse Practitioner Women's Health
DX: R30.0 Dysuria (principal)